=== PATIENT | male | born 1995 | race Caucasian/White ===

== ENCOUNTER 2017-05-01 22:19 | Emergency (ER) | payer OTHER ==
[2017-05-01 23:26] LABS: HEMOGLOBIN 16.4 gm/dl (14.0-17.5); RED BLOOD COUNT 5.41 M/UL (4.20-5.50); WHITE BLOOD COUNT 7.9 K/UL (4.5-11.0)
[2017-05-01 23:50] LABS: BUN/CREATININE RATIO 12 (0-10)
== END 2017-05-02 02:58 | disposition home or self-care (01) ==
LOC: ER1 22:19
PROVIDERS: Emergency Medicine
DX: R07.89 Other chest pain (principal)
CPT/HCPCS: 36415; 71010; 80053; 82550; 82553; 83874; 84484; 85025; 93005; 99285